=== PATIENT | male | born 1940 | race Caucasian/White ===

== ENCOUNTER 2024-11-22 09:54 | Outpatient (CLI) | payer MEDICARE, SELFPAY | END 2024-11-22 09:55 | disposition home or self-care (01) | PROVIDERS: PCP General Practice; Visit Provider Nurse Practitioner Family | DX: L89.322 Pressure ulcer of left buttock, stage 2 (principal); L89.152 Pressure ulcer of sacral region, stage 2; E11.9 Type 2 diabetes mellitus without complications; Z79.84 Long term (current) use of oral hypoglycemic drugs | CPT/HCPCS: G0463 ==

== ENCOUNTER 2024-11-29 09:41 | Outpatient (CLI) | payer MEDICARE, SELFPAY | END 2024-11-29 09:42 | disposition home or self-care (01) | LOC: WOUND 09:41 | PROVIDERS: PCP General Practice; Visit Provider Nurse Practitioner Family | DX: L89.322 Pressure ulcer of left buttock, stage 2 (principal) | CPT/HCPCS: 97597 ==

== ENCOUNTER 2024-12-06 09:58 | Outpatient (CLI) | payer MEDICARE, SELFPAY | END 2024-12-06 09:59 | disposition home or self-care (01) | LOC: WOUND 09:58 | PROVIDERS: PCP General Practice; Visit Provider Nurse Practitioner Family | DX: Z09 Encounter for follow-up examination after completed treatment for conditions other than malignant neoplasm (principal); Z87.2 Personal history of diseases of the skin and subcutaneous tissue | CPT/HCPCS: G0463 ==

== ENCOUNTER 2025-01-30 09:50 | Outpatient (CLI) | payer MEDICARE, SELFPAY | END 2025-01-30 09:51 | disposition home or self-care (01) | LOC: WOUND 09:50 | PROVIDERS: PCP General Practice; Visit Provider Nurse Practitioner Family | DX: E11.622 Type 2 diabetes mellitus with other skin ulcer (principal); L89.322 Pressure ulcer of left buttock, stage 2; R26.89 Other abnormalities of gait and mobility | CPT/HCPCS: 97602; G0463 ==

== ENCOUNTER 2025-02-16 10:04 | Outpatient (CLI) | payer MEDICARE, SELFPAY | END 2025-02-16 10:05 | disposition home or self-care (01) | LOC: WOUND 10:04 | PROVIDERS: PCP General Practice; Visit Provider Nurse Practitioner Family | DX: E11.9 Type 2 diabetes mellitus without complications (principal); R26.89 Other abnormalities of gait and mobility; Z87.2 Personal history of diseases of the skin and subcutaneous tissue; Z79.84 Long term (current) use of oral hypoglycemic drugs | CPT/HCPCS: G0463 ==